=== PATIENT | male | born 1985 | race American Indian/Alaskan Native ===

== ENCOUNTER 2017-05-09 11:02 | Emergency (ER) | payer MEDICAID, OTHER ==
[2017-05-09 11:44] VITALS: BMI 21.7
[2017-05-09 11:45] VITALS: TEMP 98.5; O2SAT 98
--- NOTE | 2017-05-09 12:30 | C.PDOC ---
History Of Present Illness 32 y/o male presents to the ED with complaints of pain to left great toe x2 days. Pt states he stubbed the toe. He missed work today and needs a work note. Denies weakness, numbness or any other complaints. Time Seen by Provider: 05/09/17 12:08 Chief Complaint (Nursing): Lower Extremity Problem/Injury History Per: Patient History/Exam Limitations: no limitations Onset/Duration Of Symptoms: Days Current Symptoms Are (Timing): Still Present Severity: Mild Recent travel outside of the [place]: No Past Medical History Reviewed: Historical Data, Nursing Documentation, Vital Signs Vital Signs: Last Vital Signs Temp 98.5 F 05/09/17 11:44 Pulse 85 05/09/17 12:38 Resp 18 05/09/17 12:38 BP 119/68 05/09/17 12:38 Pulse Ox 98 05/09/17 12:38 - Medical History PMH: Anxiety, Post Traumatic Stress Disorder - [facility] Procedures INDIVID PSYCHOTHERAP NEC (02/02/15) OTHER GROUP THERAPY (02/02/15) Family History: States: Unknown Family Hx - Social History Hx Tobacco Use: Yes Hx Alcohol Use: No Hx Substance Use: No - Immunization History Hx Tetanus Toxoid Vaccination: No Hx Influenza Vaccination: No Hx Pneumococcal Vaccination: No Review Of Systems Musculoskeletal: Positive for: Other (left great toe pain) Neurological: Negative for: Weakness, Numbness Physical Exam - Physical Exam Appears: Non-toxic, No Acute Distress Skin: Warm, Dry, No Rash Head: Atraumatic, Normacephalic Extremity: Normal ROM, Capillary Refill (<2 seconds), No Deformity, No Swelling , Other (Left toes normal) Extremity: Bilateral: Atraumatic Neurological/Psych: Oriented x3, Normal Speech, Normal Motor, Normal Sensation ED Course And Treatment O2 Sat by Pulse Oximetry: 98 (room air) Pulse Ox Interpretation: Normal - Other Rad L great toe X-Ray: Interpreted by Me (neg) Progress Note: Plan: motrin, XR left great toe Medical Decision Making Medical Decision Making: stubbed his toe 2 days ago normal exam normal x-ray needed a note for work. Disposition Doctor Will See Patient In The: Office Counseled Patient/Family Regarding: Studies Performed, Diagnosis - Disposition Referrals: [facility] [Outside] [facility] [Outside] Disposition: HOME/ ROUTINE Disposition Time: 12:30 Condition: GOOD Additional Instructions: continue ice packs and motrin as needed follow-up in our Clinic as needed Instructions: Contusion in Adults (ED) Forms: Work Excuse - Clinical Impression Clinical Impression: Toe sprain - Scribe Statement The provider has reviewed the documentation as recorded by the Rickey Erickson Provider Attestation: All medical record entries made by the Rickey were at my direction and personally dictated by me. I have reviewed the chart and agree that the record accurately reflects my personal performance of the history, physical exam, medical decision making, and the department course for this patient. I have also personally directed, reviewed, and agree with the discharge instructions and disposition.
--- NOTE | 2017-05-09 12:31 | RAD ---
PROCEDURE: Radiographs of the left great toe. TECHNIQUE:: AP radiograph of the left foot, with oblique and lateral view of the left great toe. COMPARISON: None. FINDINGS: BONES: Current study reveals no definitive radiographic evidence of acute displaced fracture nor dislocation. The osseous structures intact of. JOINTS: Minimal hallux valgus deformity. Joint spaces are preserved without significant osteoarthritis. SOFT TISSUES: Questionable mild soft tissue swelling left great toe No radiopaque foreign bodies. OTHER FINDINGS: None. IMPRESSION: No acute fracture seen.
[2017-05-09 12:39] VITALS: BP 119/68; PULSE 85; RESP 18
== END 2017-05-09 12:39 | disposition home or self-care (01) ==
LOC: C.ER 11:02
DX: S93.502A Unspecified sprain of left great toe, initial encounter (principal); X58.XXXA Exposure to other specified factors, initial encounter

== ENCOUNTER 2017-05-31 12:35 | Emergency (ER) | payer MEDICAID, OTHER ==
[2017-05-31 12:35] VITALS: BMI 21.7
--- NOTE | 2017-05-31 13:53 | C.PDOC ---
History Of Present Illness 32 year old male presents to ED after a bystander witnessed him faint while walking to work just prior to arrival. 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 He has a history of anxiety. He also notes left foot pain from an injury approximately two weeks ago. Patient was seen at [facility] ED for his left foot injury and had an X-Ray performed that was negative. He continues to have pain. He denies any injury, nausea, vomiting, dizziness or headache. Time Seen by Provider: 05/31/17 13:15 Chief Complaint (Nursing): Syncope History Per: Patient History/Exam Limitations: no limitations Onset/Duration Of Symptoms: Sudden Onset Current Symptoms Are (Timing): Better Number Of Syncopal Episodes: 1 Activity At Onset Of Symptoms: Walking Associated Symptoms Preceding Syncopal Episode: No Predromal Symptoms (Sudden Onset) Seizure Or Post-ictal Symptoms: None Recent travel outside of the [place]: No Past Medical History Reviewed: Historical Data, Nursing Documentation, Vital Signs Vital Signs: Last Vital Signs Temp 97.8 F 05/31/17 14:39 Pulse 76 05/31/17 14:39 Resp 20 05/31/17 14:39 BP 99/63 L 05/31/17 14:39 Pulse Ox 96 05/31/17 15:21 - Medical History PMH: Anxiety, Post Traumatic Stress Disorder - [facility] Procedures INDIVID PSYCHOTHERAP NEC (02/02/15) OTHER GROUP THERAPY (02/02/15) Family History: States: Unknown Family Hx - Social History Hx Tobacco Use: Yes Hx Alcohol Use: No Hx Substance Use: No - Immunization History Hx Tetanus Toxoid Vaccination: No Hx Influenza Vaccination: No Hx Pneumococcal Vaccination: No Review Of Systems Constitutional: Negative for: Fever, Chills Cardiovascular: Negative for: Chest Pain, Palpitations Respiratory: Negative for: Shortness of Breath Gastrointestinal: Negative for: Nausea, Vomiting, Abdominal Pain, Diarrhea Musculoskeletal: Positive for: Foot Pain (left foot pain from previous injury ) Physical Exam - Physical Exam Appears: Non-toxic, No Acute Distress, Other (Patient appears anxious on exam ) Skin: Warm, Dry Head: Atraumatic, Normacephalic Eye(s): bilateral: Normal Inspection, PERRL, EOMI Nose: Normal Oral Mucosa: Moist Neck: Normal ROM, Supple Chest: Symmetrical, No Deformity Cardiovascular: Rhythm Regular Respiratory: Normal Breath Sounds, No Rhonchi, No Wheezing Gastrointestinal/Abdominal: Soft, No Tenderness, No Distention, No Guarding, No Rebound Back: Normal Inspection, No Vertebral Tenderness, No Paraspinal Tenderness Extremity: Normal ROM, Tenderness (left foot dorsal aspect of 2nd and 3rd metatarsels tender to palpation), No Swelling Neurological/Psych: Oriented x3, Normal Speech, Normal Cranial Nerves, No Cerebellar Signs, Normal Motor, Normal Sensation Gait: Steady ED Course And Treatment ECG: Interpreted By Me, Viewed By Me ECG Rhythm: Sinus Rhythm (with sinus arrhythmia) ECG Interpretation: No Acute Changes Rate From EC O2 Sat by Pulse Oximetry: 96 (room air ) Pulse Ox Interpretation: Normal - Other Rad Left Foot X-Ray X-Ray: Interpreted by Me, Viewed By Me Interpretation: No fractures or dislocations. Progress Note: EKG and X-Ray of left foot were performed. Medical Decision Making Medical Decision Makin32 year old male with episode of syncope. Upon arrival to ED patient has no symptoms is alert and oriented in no distress. EKG, accucheck ordered. Xray of foot ordered because of patient complaint of prior injury. Patient observed in ED without any arrhytmia on monitor or any complaints. Patient is stressed out from work and is anxious to get back. Patient discharged Disposition Counseled Patient/Family Regarding: Studies Performed, Diagnosis, Need For Followup - Disposition Referrals: Abran Mcpherson MD [Staff Provider] - Disposition: HOME/ ROUTINE Disposition Time: 14:36 Condition: STABLE Additional Instructions: Follow up with your primary medical doctor or clinic in 2-5 days for further evaluation. Xray was normal. Return to the emergency department at any time if symptoms persist or worsen. Instructions: Syncope (DC) Forms: [facility] (Danish), Work Excuse - POA Present On Arrival: None - Clinical Impression Clinical Impression: Foot pain, left, Syncope - Scribe Statement The provider has reviewed the documentation as recorded by the Scribe Tatyana Mei All medical record entries made by the Scribe were at my direction and personally dictated by me. I have reviewed the chart and agree that the record accurately reflects my personal performance of the history, physical exam, medical decision making, and the department course for this patient. I have also personally directed, reviewed, and agree with the discharge instructions and disposition.
--- NOTE | 2017-05-31 14:07 | RAD ---
PROCEDURE: Left Foot Radiographs. HISTORY: Pain COMPARISON: None. FINDINGS: BONES: Bone alignment and mineralization are normal. No fracture. JOINTS: Normal. SOFT TISSUES: Normal. OTHER FINDINGS: None. IMPRESSION: Normal examination.
[2017-05-31 14:40] VITALS: BP 99/63; PULSE 76; RESP 20; TEMP 97.8
[2017-05-31 15:16] VITALS: O2SAT 96
--- NOTE | 2017-05-31 20:22 | CARD ---
APPROVED REPORT EKG Measurement Heart [id number] <Conclusion> Normal sinus rhythm with sinus arrhythmia Normal ECG
== END 2017-05-31 14:48 | disposition home or self-care (01) ==
LOC: C.ER 12:35
DX: R55 Syncope and collapse (principal); M79.672 Pain in left foot; F41.9 Anxiety disorder, unspecified

== ENCOUNTER 2017-06-06 00:14 | Emergency (ER) | payer MEDICAID ==
[2017-06-06 00:14] VITALS: BMI 21.7
[2017-06-06 00:28] VITALS: PULSE 96; RESP 20; TEMP 98.3; O2SAT 97
--- NOTE | 2017-06-06 00:57 | C.PDOC ---
History Of Present Illness BIBA for sore throat, pt was worried his airway was compromised many prior evals for various pains with neg w/u h/o anxiety Time Seen by Provider: 06/06/17 00:52 Chief Complaint (Nursing): ENT Problem History Per: Patient, EMS History/Exam Limitations: no limitations Onset/Duration Of Symptoms: Hrs Current Symptoms Are (Timing): Better Location Of Pain: Throat Sick Contacts (Context): None Severity: Mild Pain Scale Rating Of: 2 Additional History Per: Patient Past Medical History Reviewed: Historical Data, Nursing Documentation, Vital Signs Vital Signs: Last Vital Signs Temp 98.3 F 06/06/17 00:21 Pulse 96 H 06/06/17 00:21 Resp 20 06/06/17 00:21 BP Pulse Ox 97 06/06/17 00:57 - Medical History PMH: Anxiety, Post Traumatic Stress Disorder Denies: Diabetes, Hepatitis, HIV, HTN, Chronic Kidney Disease, Seizures, Sexually Transmitted Disease - [facility] Procedures INDIVID PSYCHOTHERAP NEC (02/02/15) OTHER GROUP THERAPY (02/02/15) Family History: States: Unknown Family Hx - Social History Hx Tobacco Use: Yes Hx Alcohol Use: No Hx Substance Use: No - Immunization History Hx Tetanus Toxoid Vaccination: No Hx Influenza Vaccination: No Hx Pneumococcal Vaccination: No Review Of Systems Except As Marked, All Systems Reviewed And Found Negative. Psych: Positive for: Anxiety Physical Exam - Physical Exam Appears: Well Skin: Normal Color Head: Atraumatic Eye(s): bilateral: Normal Inspection Throat: Erythema (mild, widely patent OP, no exudate) Respiratory: Normal Breath Sounds ED Course And Treatment O2 Sat by Pulse Oximetry: 97 Progress Note: motrin PO Medical Decision Making Medical Decision Making: mild sore throat, widely patent OP, no osb, no infection, normal voice/phonation ? underlying anxiety reassured, NSAIDS educated Disposition Doctor Will See Patient In The: Office Counseled Patient/Family Regarding: Studies Performed, Diagnosis - Disposition Referrals: Abran Mcpherson MD [Staff Provider] - Disposition: HOME/ ROUTINE Disposition Time: 00:57 Condition: GOOD Additional Instructions: take motrin 400-600 mg every 6 hours as needed for your mild sore throat pain Follow-up with Dr Mcpherson as needed Instructions: Pharyngitis (ED) Forms: Pins (Stateless) - Clinical Impression Clinical Impression: Sore throat
== END 2017-06-06 01:12 | disposition home or self-care (01) ==
LOC: C.ER 00:14
DX: J02.9 Acute pharyngitis, unspecified (principal); F17.210 Nicotine dependence, cigarettes, uncomplicated

== ENCOUNTER 2017-07-10 04:57 | Emergency (ER) | payer MEDICAID ==
[2017-07-10 04:58] VITALS: BMI 21.7
[2017-07-10 05:12] VITALS: BP 110/71; PULSE 72; RESP 20; TEMP 99.9; O2SAT 98
--- NOTE | 2017-07-10 05:22 | C.PDOC ---
History Of Present Illness 32 year old male who presents to the ER with a complaint of facial pain, described as pressure, frontal headache, and nasal congestion for the past 3 days. Denies toothache, fever, or injury. Time Seen by Provider: 07/10/17 05:13 Chief Complaint (Nursing): Cough, Cold, Congestion History Per: Patient History/Exam Limitations: no limitations Onset/Duration Of Symptoms: Hrs Current Symptoms Are (Timing): Still Present Location Of Pain: Headache Sick Contacts (Context): None Associated Symptoms: Nasal Congestion. denies: Fever Ear Symptoms: Bilateral: None Recent travel outside of the [place]: No Past Medical History Reviewed: Historical Data, Nursing Documentation, Vital Signs Vital Signs: Last Vital Signs Temp 99.9 F H 07/10/17 05:05 Pulse 72 07/10/17 05:05 Resp 20 07/10/17 05:05 BP 110/71 07/10/17 05:05 Pulse Ox 98 07/10/17 05:31 - Medical History PMH: Anxiety, Post Traumatic Stress Disorder Surgical History: No Surg Hx - [facility] Procedures INDIVID PSYCHOTHERAP NEC (02/02/15) OTHER GROUP THERAPY (02/02/15) Family History: States: Unknown Family Hx - Social History Hx Tobacco Use: Yes Hx Alcohol Use: Yes Hx Substance Use: Yes - Immunization History Hx Tetanus Toxoid Vaccination: No Hx Influenza Vaccination: No Hx Pneumococcal Vaccination: No Review Of Systems Constitutional: Negative for: Fever, Chills, Malaise ENT: Negative for: Ear Pain, Mouth Pain, Throat Pain Cardiovascular: Negative for: Chest Pain, Palpitations Respiratory: Negative for: Cough, Shortness of Breath Gastrointestinal: Negative for: Nausea, Vomiting, Abdominal Pain Skin: Negative for: Rash Neurological: Positive for: Headache. Negative for: Weakness, Numbness, Dizziness Physical Exam - Physical Exam Appears: Non-toxic Skin: Normal Color, Warm, Dry Head: Atraumatic, Normacephalic, Tenderness (Left maxillary sinus), No Swelling Eye(s): bilateral: Normal Inspection, EOMI Ear(s): Bilateral: Normal Nose: Normal, No Discharge Oral Mucosa: Moist Teeth: Normal Dentition Throat: Normal, No Erythema, No Exudate Neck: Normal, Supple Chest: Symmetrical, No Tenderness Cardiovascular: Rhythm Regular, No Murmur Respiratory: Normal Breath Sounds, No Rales, No Rhonchi, No Wheezing Extremity: Bilateral: Atraumatic, Normal Color And Temperature, Normal ROM Neurological/Psych: Oriented x3, Normal Speech Gait: Steady ED Course And Treatment O2 Sat by Pulse Oximetry: 98 (Room air) Pulse Ox Interpretation: Normal Medical Decision Making Medical Decision Making: Impression: 32 year old male with sinus pressure. Plan: * Sudafed Disposition Counseled Patient/Family Regarding: Diagnosis, Need For Followup, Rx Given - Disposition Referrals: [facility] [Outside] [facility] [Outside] Disposition: HOME/ ROUTINE Disposition Time: 05:30 Condition: STABLE Additional Instructions: Take Tylenol or Motrin alternating every 4-6 hours for Fever 100.4F or higher. Rest and drink plenty of fluids. May use cool mist humidifier or vaporizer in room. Try taking over the counter antihistamine (Claritin, Gabriela, Zyrtec), Decongestant or Cough medicine (Mucinex) as needed every 6-8 hours. Follow up with your primary medical doctor or clinic in 1 week for further evaluation. Prescriptions: Fluticasone Propionate [Flonase] 1 actuation NS DAILY #1 bottle Loratadine [Claritin] 10 mg PO DAILY #30 tab Pseudoephedrine HCl [Sudafed] 30 mg PO Q8 #24 tablet Instructions: Sinusitis (ED) Forms: Work Excuse - POA Present On Arrival: None - Clinical Impression Clinical Impression: Sinusitis - Scribe Statement The provider has reviewed the documentation as recorded by the Scribjosephine Farley All medical record entries made by the Scribe were at my direction and personally dictated by me. I have reviewed the chart and agree that the record accurately reflects my personal performance of the history, physical exam, medical decision making, and the department course for this patient. I have also personally directed, reviewed, and agree with the discharge instructions and disposition.
== END 2017-07-10 05:45 | disposition home or self-care (01) ==
LOC: C.ER 04:57
DX: J32.9 Chronic sinusitis, unspecified (principal)

== ENCOUNTER 2017-07-13 00:55 | Emergency (ER) | payer MEDICAID ==
[2017-07-13 00:55] VITALS: BMI 21.7
[2017-07-13 01:15] VITALS: RESP 18; O2SAT 99
--- NOTE | 2017-07-13 01:19 | C.PDOC ---
History Of Present Illness 32 y/o male presents to the ED for evaluation of diffuse abdominal pain which began while he was drinking alcohol earlier this evening. Patient admits to drinking around 1 pint of alcohol and beer daily. Patient notes he experiences a similar type of pain when straining to have a bowel movement. Patient also requests to be tested for HIV. Upon further questioning, it became clearer that this may have been patient's main reason for ED visit. Patient states he engaged in unprotected sexual intercourse with a female around 2 months ago. The female's HIV status is unknown, but patient is concerned and wishes to get tested. He denies fever, vomiting, and diarrhea. Time Seen by Provider: 07/13/17 01:03 Chief Complaint (Nursing): Abdominal Pain History Per: Patient History/Exam Limitations: no limitations Onset/Duration Of Symptoms: Hrs Current Symptoms Are (Timing): Still Present Location Of Pain/Discomfort: Diffuse Radiation Of Pain To:: None Quality Of Discomfort: "Pain" Associated Symptoms: denies: Fever, Chills, Nausea, Vomiting Additional History Per: Patient Past Medical History Reviewed: Historical Data, Nursing Documentation, Vital Signs Vital Signs: Last Vital Signs Temp 98.6 F 07/13/17 02:52 Pulse 70 07/13/17 02:52 Resp 18 07/13/17 02:52 BP 132/80 07/13/17 02:52 Pulse Ox 99 07/13/17 02:52 - Medical History PMH: Anxiety, Post Traumatic Stress Disorder Surgical History: No Surg Hx - [facility] Procedures INDIVID PSYCHOTHERAP NEC (02/02/15) OTHER GROUP THERAPY (02/02/15) Family History: States: Unknown Family Hx - Social History Hx Tobacco Use: Yes Hx Alcohol Use: Yes Hx Substance Use: Yes - Immunization History Hx Tetanus Toxoid Vaccination: No Hx Influenza Vaccination: No Hx Pneumococcal Vaccination: No Review Of Systems Constitutional: Negative for: Fever, Chills Cardiovascular: Negative for: Chest Pain, Palpitations Respiratory: Negative for: Cough, Shortness of Breath Gastrointestinal: Positive for: Abdominal Pain. Negative for: Nausea, Vomiting , Diarrhea Neurological: Negative for: Weakness, Numbness Physical Exam - Physical Exam Appears: Non-toxic, No Acute Distress Skin: Normal Color, Warm, Dry Head: Atraumatic, Normacephalic Eye(s): bilateral: Normal Inspection Oral Mucosa: Moist Neck: Supple Chest: Symmetrical, No Deformity, No Tenderness Cardiovascular: Rhythm Regular, No Murmur Respiratory: Normal Breath Sounds, No Rales, No Rhonchi, No Wheezing Gastrointestinal/Abdominal: Tenderness (diffuse), No Guarding, No Rebound Extremity: Normal ROM, Capillary Refill (less than 2 seconds ) Neurological/Psych: Oriented x3, Normal Speech, Normal Cognition Gait: Steady ED Course And Treatment - Laboratory Results Result Diagrams: 07/13/17 01:44 07/13/17 01:44 O2 Sat by Pulse Oximetry: 99 (on RA) Pulse Ox Interpretation: Normal Progress Note: labs ordered and reviewed. Chlamydia/GC culture obtained and sent to lab for evaluation. Medical Decision Making Medical Decision Making: Progress: Patient is advised that this ED does not offer routine HIV testing. Patient is advised to follow up with his PMD and/or Health Department for further evaluation. Disposition - Disposition Referrals: [facility] [Outside] Disposition: HOME/ ROUTINE Disposition Time: 03:20 Condition: GOOD Additional Instructions: Please follow up in the clinic here or in the health department for HIV testing. Return to the ER for any worsening symptoms or for any other concerns. Prescriptions: Famotidine [Pepcid] 20 mg PO DAILY #14 tab Instructions: Abuse of Alcohol (ED) Forms: General Discharge Instructions, [facility] (Slovak) - Clinical Impression Clinical Impression: Abdominal pain, Alcohol abuse - Scribe Statement The provider has reviewed the documentation as recorded by the Scribe (Anjali Lynne) Provider Attestation: All medical record entries made by the Scribe were at my direction and personally dictated by me. I have reviewed the chart and agree that the record accurately reflects my personal performance of the history, physical exam, medical decision making, and the department course for this patient. I have also personally directed, reviewed, and agree with the discharge instructions and disposition.
[2017-07-13 01:49] LABS: BASO # 0.1 K/uL (0.0-0.2); BASO % 0.6 % (0.0-2.0); EOS # 0.2 K/uL (0.0-0.7); EOS % 2.4 % (0.0-4.0); HEMATOCRIT 42.7 % (35.0-51.0); LYMPH # 2.6 K/uL (1.0-4.3); LYMPH % 29.8 % (20.0-40.0); MEAN CELL VOLUME 93.2 fL (80.0-94.0); MEAN CORPUSCULAR HGB CONC 34.3 g/dL (33.0-37.0); MEAN PLATELET VOLUME 8.4 fL (7.2-11.7); MONO # 0.8 K/uL (0.0-0.8); MONO % 9.8 % (0.0-10.0); NRBC % 0.1 % (0.0-2.0); RED CELL DISTRIBUTION WIDTH 13.6 % (11.5-14.5); WHITE BLOOD COUNT 8.6 K/uL (4.8-10.8)
[2017-07-13 01:50] LABS: URINE BILIRUBIN NEGATIVE (NEGATIVE); URINE BLOOD NEGATIVE (NEGATIVE); URINE COLOR Colorless (YELLOW); URINE GLUCOSE (UA) NORMAL (Normal); URINE KETONE NEGATIVE (NEGATIVE); URINE LEUKOCYTE ESTERASE NEG Leu/uL (Negative); URINE PROTEIN NEGATIVE (NEGATIVE); URINE UROBILINOGEN NORMAL mg/dL (0.2-1.0); WBC URINE < 1 /hpf (0-5)
[2017-07-13 02:06] LABS: ALB/GLOB RATIO 1.2 (1.0-2.1); ALKALINE PHOSPHATASE 89 U/L (38-126); ALT/SGPT 31 U/L (21-72); AST/SGOT 24 U/L (17-59); BILIRUBIN,TOTAL 0.5 mg/dL (0.2-1.3); BLOOD UREA NITROGEN 11 mg/dL (9-20); CALCIUM 9.4 mg/dl (8.6-10.4); CARBON DIOXIDE 24 mmol/L (22-30); CHLORIDE 103 mmol/L (98-107); GFR AFRICAN-AMERICAN > 60; GLUCOSE,RANDOM 79 mg/dL (75-110); POTASSIUM 3.6 mmol/L (3.6-5.2); SODIUM 140 mmol/L (132-148); TOTAL PROTEIN 7.6 g/dL (6.3-8.3)
[2017-07-13 02:52] VITALS: BP 132/80; PULSE 70; TEMP 98.6
== END 2017-07-13 03:20 | disposition home or self-care (01) ==
LOC: C.ER 00:55
DX: R10.9 Unspecified abdominal pain (principal); F10.10 Alcohol abuse, uncomplicated; Y90.9 Presence of alcohol in blood, level not specified

== ENCOUNTER 2018-02-22 21:04 | Emergency (ER) | payer MEDICAID, OTHER ==
[2018-02-22 21:04] VITALS: BMI 21.7
[2018-02-22] MEDS ORDERED: Sodium Chloride 0.9% 1,000 ML IV ONE (22:04)
--- NOTE | 2018-02-22 22:05 | C.PDOC ---
History Of Present Illness 32 year old male presents to the ER with a complaint of epigastric pain and 2 episodes of watery stools after eating pork 2 days ago. Patient states he usually does not eat pork because he feel it does not agree with him. He also reports he developed nausea and vomiting today and continues to not feel well. Denies fever or chills.He denies any recent travel, antibiotic use or sick contacts. Time Seen by Provider: 02/22/18 21:44 Chief Complaint (Nursing): GI Problem History Per: Patient History/Exam Limitations: no limitations Onset/Duration Of Symptoms: Days Current Symptoms Are (Timing): Still Present Location Of Pain/Discomfort: Epigastric Radiation Of Pain To:: None Quality Of Discomfort: Unable To Describe Associated Symptoms: Nausea, Vomiting, Other (Watery stools). denies: Fever, Chills Exacerbating Factors: None Alleviating Factors: None Recent travel outside of the [place]: No Past Medical History Reviewed: Historical Data, Nursing Documentation, Vital Signs Vital Signs: Last Vital Signs Temp 99 F 02/22/18 22:55 Pulse 73 02/22/18 22:55 Resp 16 02/22/18 22:55 BP 150/110 H 02/22/18 22:55 Pulse Ox 98 02/22/18 23:15 - Medical History PMH: Anxiety, Post Traumatic Stress Disorder - [facility] Procedures INDIVID PSYCHOTHERAP NEC (02/02/15) OTHER GROUP THERAPY (02/02/15) Family History: States: Unknown Family Hx - Social History Hx Tobacco Use: Yes Hx Alcohol Use: Yes Hx Substance Use: Yes (PCP) - Immunization History Hx Tetanus Toxoid Vaccination: No Hx Influenza Vaccination: No Hx Pneumococcal Vaccination: No Review Of Systems Constitutional: Negative for: Fever, Chills Cardiovascular: Negative for: Chest Pain, Palpitations Respiratory: Negative for: Shortness of Breath Gastrointestinal: Positive for: Nausea, Vomiting, Abdominal Pain, Other (Watery stools) Physical Exam - Physical Exam Appears: Non-toxic Skin: Normal Color, Warm, Dry Head: Atraumatic, Normacephalic Eye(s): bilateral: Normal Inspection Oral Mucosa: Moist Chest: Symmetrical, No Tenderness Cardiovascular: Rhythm Regular Respiratory: Normal Breath Sounds, No Rales, No Rhonchi, No Wheezing Gastrointestinal/Abdominal: Soft, No Tenderness Neurological/Psych: Oriented x3, Normal Speech ED Course And Treatment - Laboratory Results Result Diagrams: 02/22/18 22:45 02/22/18 22:45 Lab Interpretation: No Acute Changes O2 Sat by Pulse Oximetry: 98 (Room air) Pulse Ox Interpretation: Normal Progress Note: Blood work ordered. IV fluids and zofran administered. Reevaluation Time: 23:12 Reassessment Condition: Improved Disposition Counseled Patient/Family Regarding: Studies Performed, Diagnosis, Need For Followup, Rx Given - Disposition Referrals: [facility] [Outside] Disposition: HOME/ ROUTINE Disposition Time: 23:12 Condition: IMPROVED Prescriptions: Ondansetron ODT [Zofran ODT] 1 odt PO QID PRN #10 odt PRN Reason: Nausea/Vomiting Instructions: Diarrhea in Adolescents and Adults, [place] Diet, Nausea and Vomiting, Adult (DC) Forms: [facility] (Vietnamese), Work Excuse - Clinical Impression Clinical Impression: Vomiting, Nausea, Abdominal pain, Diarrhea - Scribe Statement The provider has reviewed the documentation as recorded by the Scribjosephine Farley All medical record entries made by the Jeffreyibjosephine were at my direction and personally dictated by me. I have reviewed the chart and agree that the record accurately reflects my personal performance of the history, physical exam, medical decision making, and the department course for this patient. I have also personally directed, reviewed, and agree with the discharge instructions and disposition.
[2018-02-22 22:48] LABS: BASO % 0.5 % (0.0-2.0); EOS # 0.2 K/uL (0.0-0.7); EOS % 3.6 % (0.0-4.0); HEMOGLOBIN 13.4 g/dL (12.0-18.0); LYMPH # 2.1 K/uL (1.0-4.3); LYMPH % 31.4 % (20.0-40.0); MEAN CELL VOLUME 94.3 fL (80.0-94.0); MEAN CORPUSCULAR HEMOGLOBIN 32.5 pg (27.0-31.0); MEAN CORPUSCULAR HGB CONC 34.5 g/dL (33.0-37.0); MEAN PLATELET VOLUME 8.5 fL (7.2-11.7); MONO # 0.8 K/uL (0.0-0.8); MONO % 12.2 % (0.0-10.0); NEUT # 3.5 K/uL (1.8-7.0); NEUT % 52.3 % (50.0-75.0); NRBC % 0.1 % (0.0-2.0); RBC 4.1 Mil/uL (4.40-5.90); RED CELL DISTRIBUTION WIDTH 13.4 % (11.5-14.5); WHITE BLOOD COUNT 6.7 K/uL (4.8-10.8)
[2018-02-22 22:59] VITALS: O2SAT 98
[2018-02-22 23:00] LABS: ALB/GLOB RATIO 1.3 (1.0-2.1); ALT/SGPT 33 U/L (21-72); AST/SGOT 25 U/L (17-59); BLOOD UREA NITROGEN 15 mg/dL (9-20); CALCIUM 8.6 mg/dl (8.6-10.4); GFR AFRICAN-AMERICAN > 60; GFR NON-AFRICAN AMERICAN > 60; LIPASE 46 U/L (23-300)
[2018-02-22 23:24] VITALS: BP 138/70; PULSE 89; RESP 20; TEMP 98.8
== END 2018-02-22 23:24 | disposition home or self-care (01) ==
LOC: C.ER 21:04
DX: R11.2 Nausea with vomiting, unspecified (principal); R10.13 Epigastric pain; R19.7 Diarrhea, unspecified
CPT/HCPCS: 80053; 83690; 85025; 96361; 96374; 99285; J2405; J7040

== ENCOUNTER 2018-02-28 23:55 | Emergency (ER) | payer MEDICAID ==
[2018-02-28 23:55] VITALS: BMI 21.7
[2018-03-01 00:08] VITALS: BP 120/77; PULSE 87; RESP 20; TEMP 98.2; O2SAT 98
--- NOTE | 2018-03-01 01:19 | C.PDOC ---
History Of Present Illness 32 year old male presents to the ED c/o abdominal pain. Patient reports feeling worried due to some cramp like abdominal pain. Patient was recently seen and had blood work and exam done which both came back negative. Patient denies fever , chills, nausea, vomit, diarrhea, dysuria, hematuria. Time Seen by Provider: 03/01/18 01:19 Chief Complaint (Nursing): Abdominal Pain History Per: Patient History/Exam Limitations: no limitations Onset/Duration Of Symptoms: Days Current Symptoms Are (Timing): Still Present Location Of Pain/Discomfort: Diffuse Radiation Of Pain To:: None Quality Of Discomfort: Cramping Exacerbating Factors: None Alleviating Factors: None Recent travel outside of the [place]: No Additional History Per: Patient Past Medical History Reviewed: Historical Data, Nursing Documentation, Vital Signs Vital Signs: Last Vital Signs Temp 98.2 F 03/01/18 00:03 Pulse 87 03/01/18 00:03 Resp 20 03/01/18 00:03 BP 120/77 03/01/18 00:03 Pulse Ox 98 03/01/18 01:23 - Medical History PMH: Anxiety, Post Traumatic Stress Disorder Denies: Diabetes, Hepatitis, HIV, HTN, Chronic Kidney Disease, Seizures, Sexually Transmitted Disease Surgical History: No Surg Hx - [facility] Procedures INDIVID PSYCHOTHERAP NEC (02/02/15) OTHER GROUP THERAPY (02/02/15) Family History: States: Unknown Family Hx - Social History Hx Tobacco Use: Yes Hx Alcohol Use: Yes Hx Substance Use: Yes (PCP) - Immunization History Hx Tetanus Toxoid Vaccination: No Hx Influenza Vaccination: No Hx Pneumococcal Vaccination: No Review Of Systems Constitutional: Negative for: Fever, Chills Respiratory: Negative for: Shortness of Breath Gastrointestinal: Positive for: Abdominal Pain. Negative for: Nausea, Vomiting , Diarrhea Skin: Negative for: Rash Physical Exam - Physical Exam Appears: Non-toxic, No Acute Distress, Other (anxious) Skin: Warm, Dry Head: Normacephalic Eye(s): bilateral: Normal Inspection Nose: No Discharge Oral Mucosa: Moist Neck: Supple Chest: Symmetrical Cardiovascular: Rhythm Regular, No Murmur Respiratory: No Rales, No Rhonchi, No Wheezing Gastrointestinal/Abdominal: Soft, No Tenderness, No Guarding, No Rebound Extremity: Bilateral: Normal Color And Temperature, Normal ROM Neurological/Psych: Oriented x3 Gait: Steady ED Course And Treatment O2 Sat by Pulse Oximetry: 98 (ON RA) Pulse Ox Interpretation: Normal Disposition Counseled Patient/Family Regarding: Studies Performed, Diagnosis, Need For Followup - Disposition Referrals: [facility] at [facility] [Outside] Disposition: HOME/ ROUTINE Disposition Time: 01:19 Condition: FAIR Instructions: Anxiety, Adult (DC) Forms: [facility] [employer] (Emirati) - Clinical Impression Clinical Impression: Anxiety - Scribe Statement The provider has reviewed the documentation as recorded by the Scribe Asad Batista All medical record entries made by the Scribe were at my direction and personally dictated by me. I have reviewed the chart and agree that the record accurately reflects my personal performance of the history, physical exam, medical decision making, and the department course for this patient. I have also personally directed, reviewed, and agree with the discharge instructions and disposition.
== END 2018-03-01 01:19 | disposition home or self-care (01) ==
LOC: C.ER 23:55
DX: F41.9 Anxiety disorder, unspecified (principal)

== ENCOUNTER 2018-10-02 22:08 | Emergency (ER) | payer MEDICAID ==
[2018-10-02 22:08] VITALS: BMI 21.7
[2018-10-02] MEDS ORDERED: Alum-Mag Hydrox-Simethicone Susp (30 mL) PO STA (23:12)
--- NOTE | 2018-10-02 23:14 | C.PDOC ---
History Of Present Illness 33 year old male with PMHx of schizophrenia and alcohol abuse presents to the ED c/o mild abdominal discomfort when burping with an acidic taste in his mouth. Patient has not tried OTC acid relief medications. Patient also seeking alcohol detox. Patient denies SI/HI, hallucinations, CP, SOB, palpitations, weakness, numbness. Time Seen by Provider: 10/02/18 23:03 Chief Complaint (Nursing): Medical Clearance History Per: Patient History/Exam Limitations: no limitations Onset/Duration Of Symptoms: Days Current Symptoms Are (Timing): Still Present Recent travel outside of the [place]: No Additional History Per: Patient Past Medical History Reviewed: Historical Data, Nursing Documentation, Vital Signs - Medical History PMH: Anxiety, Fractures, Post Traumatic Stress Disorder Denies: Diabetes, Hepatitis, HIV, HTN, Chronic Kidney Disease, Seizures, Sexually Transmitted Disease Surgical History: No Surg Hx - [facility] Procedures INDIVID PSYCHOTHERAP NEC (02/02/15) OTHER GROUP THERAPY (02/02/15) Family History: States: Unknown Family Hx - Social History Hx Tobacco Use: Yes Hx Alcohol Use: Yes Hx Substance Use: Yes (PCP) - Immunization History Hx Tetanus Toxoid Vaccination: No Hx Influenza Vaccination: No Hx Pneumococcal Vaccination: No Review Of Systems Constitutional: Negative for: Fever, Chills Cardiovascular: Negative for: Chest Pain, Palpitations Respiratory: Negative for: Cough, Shortness of Breath Gastrointestinal: Positive for: Abdominal Pain. Negative for: Nausea, Vomiting, Diarrhea Skin: Negative for: Rash Neurological: Negative for: Weakness, Numbness Psych: Negative for: Depression, Suicidal ideation Physical Exam - Physical Exam Appears: Non-toxic, No Acute Distress, Other (AOB, bizarre affect) Skin: Normal Color, Warm, Dry Head: Atraumatic, Normacephalic Eye(s): bilateral: Normal Inspection Oral Mucosa: Moist Neck: Normal ROM, Supple Chest: Symmetrical Cardiovascular: Rhythm Regular Respiratory: Normal Breath Sounds, No Rales, No Rhonchi, No Wheezing Gastrointestinal/Abdominal: Soft, No Tenderness, No Guarding, No Rebound Extremity: Normal ROM, No Tenderness, No Swelling Neurological/Psych: Oriented x3, Normal Speech, Normal Cognition Gait: Steady ED Course And Treatment O2 Sat by Pulse Oximetry: 98 (ON RA) Pulse Ox Interpretation: Normal Medical Decision Making Medical Decision Making: prob alcoholic gastritis many prior evals anxiety Pepcid/maalox educated seeking detox- referred for pre-screening. no acute issues- february f/u w PMD- Dr. Mcpherson. Disposition Doctor Will See Patient In The: Office Counseled Patient/Family Regarding: Studies Performed, Diagnosis - Disposition Referrals: [facility] [Outside] [facility] [Outside] [facility] [Outside] [facility] [Outside] [facility] [Outside] Abran Mcpherson MD [Staff Provider] - Disposition: HOME/ ROUTINE Disposition Time: 23:13 Condition: GOOD Additional Instructions: GERD: probably related to alcohol use decrease alcohol intake as able pepcid 20 mg @ night Maalox 30 cc's 4-5x/day as needed for GERD symptoms Alcohol Abuse: Seek Pre-screening for inpatient alcohol detox Call [facility] in AM for further eval Instructions: Acid Reflux (Gastroesophageal Reflux Disease), Adult (DC), Anxiety, Adult (DC), Alcohol Abuse and Alcoholism (DC) Forms: [employer] (Omani) - Clinical Impression Clinical Impression: Anxiety, Alcohol abuse - Scribe Statement The provider has reviewed the documentation as recorded by the Scribe Asad Batista All medical record entries made by the Scribe were at my direction and personally dictated by me. I have reviewed the chart and agree that the record accurately reflects my personal performance of the history, physical exam, medical decision making, and the department course for this patient. I have also personally directed, reviewed, and agree with the discharge instructions and disposition.
[2018-10-02] MEDS ORDERED: Aluminum Hydroxide/Magnesium Hydroxide Susp (30 mL) ONE (23:29)
[2018-10-02 23:48] VITALS: BP 132/78; PULSE 89; RESP 20; TEMP 98; O2SAT 98
== END 2018-10-02 23:45 | disposition home or self-care (01) ==
LOC: C.ER 22:08
DX: F41.9 Anxiety disorder, unspecified (principal); F10.10 Alcohol abuse, uncomplicated; Y90.9 Presence of alcohol in blood, level not specified

== ENCOUNTER 2018-10-14 10:26 | Emergency (ER) | payer MEDICAID ==
[2018-10-14 10:29] VITALS: BMI 20.8
[2018-10-14 10:32] VITALS: RESP 18
[2018-10-14] MEDS ORDERED: Sodium Chloride 0.9% 1,000 ML IV STA (11:32)
[2018-10-14] MEDS ORDERED: cefTRIAXone (Rocephin) 250 mg Inj IM STA (11:38)
[2018-10-14] MEDS ORDERED: Sodium Chloride 0.9% 1,000 ML ONE (11:52)
[2018-10-14 12:21] LABS: BASO % 0.6 % (0.0-2.0); EOS # 0.3 K/uL (0.0-0.7); EOS % 5.1 % (0.0-4.0); HEMOGLOBIN 14.6 g/dL (12.0-18.0); LYMPH # 1.6 K/uL (1.0-4.3); LYMPH % 28.2 % (20.0-40.0); MEAN CELL VOLUME 96.5 fL (80.0-94.0); MEAN CORPUSCULAR HEMOGLOBIN 33.3 pg (27.0-31.0); MEAN CORPUSCULAR HGB CONC 34.5 g/dL (33.0-37.0); MEAN PLATELET VOLUME 8.8 fL (7.2-11.7); MONO # 0.6 K/uL (0.0-0.8); MONO % 10.2 % (0.0-10.0); NEUT # 3.2 K/uL (1.8-7.0); NEUT % 55.9 % (50.0-75.0); RBC 4.39 Mil/uL (4.40-5.90); RED CELL DISTRIBUTION WIDTH 13.7 % (11.5-14.5); WHITE BLOOD COUNT 5.8 K/uL (4.8-10.8)
[2018-10-14 12:30] LABS: ALB/GLOB RATIO 1.3 (1.0-2.1); ALBUMIN 4.2 g/dL (3.5-5.0); ALT/SGPT 48 U/L (21-72); AMYLASE 93 U/L (30-110); AST/SGOT 54 U/L (17-59); BLOOD UREA NITROGEN 22 mg/dL (9-20); CALCIUM 9.3 mg/dl (8.6-10.4); GFR NON-AFRICAN AMERICAN > 60; LIPASE 53 U/L (23-300); SQUAMOUS EPITHIAL 2 /hpf (0-5); URINE BILIRUBIN NEGATIVE (NEGATIVE); URINE BLOOD NEGATIVE (NEGATIVE); URINE CLARITY Hazy (Clear); URINE COLOR Yellow (YELLOW); URINE GLUCOSE (UA) NORMAL (Normal); URINE LEUKOCYTE ESTERASE TRACE Leu/uL (Negative); URINE PROTEIN NEGATIVE (NEGATIVE); URINE UROBILINOGEN NORMAL mg/dL (0.2-1.0)
[2018-10-14 12:35] LABS: BARBITURATES, UR NEGATIVE (NEGATIVE); BENZODIAZEPINES, UR NEGATIVE (NEGATIVE); OPIATES, UR NEGATIVE (NEGATIVE)
[2018-10-14 12:38] LABS: PHENCYCLIDINE, UR POSITIVE (NEGATIVE)
[2018-10-14 13:14] VITALS: BP 130/66; PULSE 70; TEMP 98.5; O2SAT 98
--- NOTE | 2018-10-14 14:02 | C.PDOC ---
History Of Present Illness 33 year old male presents to the ED for an evaluation of intermittent diarrhea for one week. Reports he was seen recently in the ED and was diagnosed with viral illness. Notes he recovered but feels sick again. Patient is concerned b ecause he cut left thumb 1.5 weeks ago and believes symptoms might be a cause of a finger infection. Also requesting STD/HIV testing because he had unprotected sex and has some discomfort on urination. Time Seen by Provider: 10/14/18 10:55 Chief Complaint (Nursing): Fever History Per: Patient History/Exam Limitations: no limitations Onset/Duration Of Symptoms: Days Current Symptoms Are (Timing): Still Present Reports Recently: Seen In ED Past Medical History Reviewed: Historical Data, Nursing Documentation, Vital Signs Vital Signs: Last Vital Signs Temp 98.5 F 10/14/18 13:05 Pulse 70 10/14/18 13:05 Resp 18 10/14/18 13:05 BP 130/66 10/14/18 13:05 Pulse Ox 98 10/14/18 13:05 - Medical History PMH: Anxiety, Fractures, Post Traumatic Stress Disorder Denies: Diabetes, Hepatitis, HIV, HTN, Chronic Kidney Disease, Seizures, Sexually Transmitted Disease Surgical History: No Surg Hx - [facility] Procedures INDIVID PSYCHOTHERAP NEC (02/02/15) OTHER GROUP THERAPY (02/02/15) Family History: States: No Known Family Hx - Social History Hx Tobacco Use: Yes Hx Alcohol Use: Yes Hx Substance Use: Yes (PCP) - Immunization History Hx Tetanus Toxoid Vaccination: No Hx Influenza Vaccination: No Hx Pneumococcal Vaccination: No Review Of Systems Except As Marked, All Systems Reviewed And Found Negative. Constitutional: Negative for: Fever, Chills Gastrointestinal: Positive for: Diarrhea. Negative for: Nausea, Vomiting, Abdominal Pain Genitourinary: Positive for: Dysuria. Negative for: Hematuria Physical Exam - Physical Exam Appears: Non-toxic, No Acute Distress Skin: Warm, Dry, No Rash Head: Normacephalic Eye(s): bilateral: Normal Inspection Nose: Normal Oral Mucosa: Moist Neck: Supple Chest: Symmetrical Cardiovascular: Rhythm Regular Respiratory: No Rales, No Rhonchi, No Wheezing Gastrointestinal/Abdominal: Soft, No Tenderness, No Guarding, No Rebound Extremity: Normal ROM, No Tenderness, No Deformity, No Swelling, Other (healed laceration with no erythema or drainage noted to the palmar surface of left thumb ) Neurological/Psych: Oriented x3, Normal Speech Gait: Steady ED Course And Treatment - Laboratory Results Result Diagrams: 10/14/18 12:14 10/14/18 12:14 O2 Sat by Pulse Oximetry: 98 (RA) Pulse Ox Interpretation: Normal Progress Note: Urine cultures collected. Chlamydia/GC tests ordered. Patient treated with Protonix, Rocephin, Zithromax, Zofran, and IV fluids. Patient given follow up instructions. Instructed to return to ER if symptoms worsen or new symptoms arise. Disposition - Disposition Disposition: HOME/ ROUTINE Disposition Time: 14:00 Condition: STABLE Additional Instructions: Follow up with PMD within 1-2 days. Return to ED if feel worse. Instructions: Diarrhea and Traveler's Diarrhea, Adult (DC), STD Prevention Forms: [facility] (Guamanian), Work Excuse - Clinical Impression Clinical Impression: Diarrhea, Concern about STD in male without diagnosis - PA / POWDER OPERATOR / Resident Statement MD/DO has reviewed & agrees with the documentation as recorded. - Scribe Statement The provider has reviewed the documentation as recorded by the Scribjosephine Beltre All medical record entries made by the Rickey were at my direction and personally dictated by me. I have reviewed the chart and agree that the record accurately reflects my personal performance of the history, physical exam, medical decision making, and the department course for this patient. I have also personally directed, reviewed, and agree with the discharge instructions and disposition.
== END 2018-10-14 14:12 | disposition home or self-care (01) ==
LOC: C.ER 10:26
DX: R19.7 Diarrhea, unspecified (principal); Z11.3 Encounter for screening for infections with a predominantly sexual mode of transmission
CPT/HCPCS: 80053; 80324; 80345; 80346; 80349; 80353; 80358; 80361; 81001; 82150; 83690; 83735; 83992; 85025; 87086; 87491; 87591; 87804; 96361; 96372; 96374; 96375; 99285; C9113; J0696; J2405; J7030

== ENCOUNTER 2018-10-26 06:43 | Emergency (ER) | payer MEDICAID ==
[2018-10-26 06:43] VITALS: BMI 20.8
[2018-10-26 06:52] VITALS: RESP 16; TEMP 98.1
[2018-10-26 08:33] LABS: SQUAMOUS EPITHIAL 1 /hpf (0-5); URINE AMORPHOUS SEDIMENT OCC /ul (<OCC); URINE BILIRUBIN NEGATIVE (NEGATIVE); URINE BLOOD NEGATIVE (NEGATIVE); URINE CLARITY Hazy (Clear); URINE COLOR Yellow (YELLOW); URINE GLUCOSE (UA) NORMAL (Normal); URINE LEUKOCYTE ESTERASE NEG Leu/uL (Negative); URINE PROTEIN NEGATIVE (NEGATIVE)
--- NOTE | 2018-10-26 08:37 | RAD ---
Date of service: 10/26/2018 HISTORY: cough, r/o pneumonia COMPARISON: 07/25/2016 TECHNIQUE: Chest PA and lateral FINDINGS: LUNGS: No active pulmonary disease. PLEURA: No significant pleural effusion identified. No pneumothorax apparent. CARDIOVASCULAR: No aortic atherosclerotic calcification present. Normal cardiac size. No pulmonary vascular congestion. OSSEOUS STRUCTURES: No significant abnormalities. VISUALIZED UPPER ABDOMEN: Normal. OTHER FINDINGS: None. IMPRESSION: No active disease.
[2018-10-26] MEDS ORDERED: cefTRIAXone 250 MG, Lidocaine Hydrochloride 1% 1 ML IM ONE (08:44)
[2018-10-26] MEDS ORDERED: cefTRIAXone 250 MG in Lidocaine Hydrochloride 0.9 ML IM ONE (09:00)
--- NOTE | 2018-10-26 09:25 | C.PDOC ---
History Of Present Illness 33 years old male presents to ED requesting STD check. Denies any symptoms. Patient also reports persistent expiratory cough associated with pain with deep inspiration in the back. Patient describes cough is worse at night. Denies fever, nausea, vomiting, rash. Time Seen by Provider: 10/26/18 07:23 Chief Complaint (Nursing): Cough, Cold, Congestion History Per: Patient History/Exam Limitations: no limitations Onset/Duration Of Symptoms: Hrs Current Symptoms Are (Timing): Still Present Recent travel outside of the [place]: No Past Medical History Reviewed: Historical Data, Nursing Documentation, Vital Signs Vital Signs: Last Vital Signs Temp 98.1 F 10/26/18 06:47 Pulse 79 10/26/18 06:47 Resp 16 10/26/18 06:47 BP 130/75 10/26/18 06:47 Pulse Ox 98 10/26/18 06:47 - Medical History PMH: Anxiety, Fractures, Post Traumatic Stress Disorder Denies: Diabetes, Hepatitis, HIV, HTN, Chronic Kidney Disease, Seizures, Sexually Transmitted Disease - [facility] Procedures INDIVID PSYCHOTHERAP NEC (02/02/15) OTHER GROUP THERAPY (02/02/15) Family History: States: Unknown Family Hx - Social History Hx Tobacco Use: Yes Hx Alcohol Use: No Hx Substance Use: Yes (marijuana) - Immunization History Hx Tetanus Toxoid Vaccination: No Hx Influenza Vaccination: No Hx Pneumococcal Vaccination: No Review Of Systems Constitutional: Negative for: Fever, Chills Respiratory: Positive for: Cough Gastrointestinal: Negative for: Nausea, Vomiting, Diarrhea Skin: Negative for: Rash Neurological: Negative for: Weakness, Numbness Physical Exam - Physical Exam Appears: Non-toxic, No Acute Distress Skin: Normal Color, Warm, Dry, No Rash Head: Atraumatic, Normacephalic Eye(s): bilateral: Normal Inspection, PERRL, EOMI Oral Mucosa: Moist Neck: Normal ROM, Supple Chest: Symmetrical, No Tenderness Cardiovascular: Rhythm Regular, No Murmur Respiratory: Normal Breath Sounds, No Rales, No Rhonchi, No Wheezing Gastrointestinal/Abdominal: Bowel Sounds, Soft, No Tenderness Extremity: Normal ROM Extremity: Bilateral: Atraumatic, Normal Color And Temperature, Normal ROM Pulses: Left Radial: Normal, Right Radial: Normal Neurological/Psych: Oriented x3, Normal Speech Gait: Steady ED Course And Treatment O2 Sat by Pulse Oximetry: 98 (RA) Pulse Ox Interpretation: Normal - Other Rad CXR X-Ray: Viewed By Me, Read By Radiologist Interpretation: Date of service: 10/26/2018. HISTORY: cough, r/o pneumonia. COMPARISON: 07/25/2016. TECHNIQUE: Chest PA and lateral. FINDINGS: LUNGS: No active pulmonary disease. PLEURA: No significant pleural effusion identified. No pneumothorax apparent. CARDIOVASCULAR: No aortic atherosclerotic calcification present. Normal cardiac size. No pulmonary vascular congestion. OSSEOUS STRUCTURES: No significant abnormalities. VISUALIZED UPPER ABDOMEN: Normal. OTHER FINDINGS: None. IMPRESSION: No active disease. Medical Decision Making Medical Decision Making: Plan: * Rocephin * Zithromax * Urine culture * Labs * Urinalysis * CXR Disposition - Disposition Referrals: [facility] [Outside] Disposition: HOME/ ROUTINE Disposition Time: 09:25 Condition: STABLE Additional Instructions: Follow up with the medical doctor within 1-2 days without fail. Return if worsened. Prescriptions: Benzonatate 200 mg PO TID PRN #30 capsule PRN Reason: Cough Loratadine [Claritin] 10 mg PO DAILY #10 tab predniSONE [Prednisone] 20 mg PO BID #10 tab Instructions: Urethritis, Upper Respiratory Infection (ED) Forms: [employer] (Icelandic) - Clinical Impression Clinical Impression: STD (male), Influenza-like illness - PA / SWITCH TECHNICIAN / Resident Statement MD/DO has reviewed & agrees with the documentation as recorded. - Scribe Statement The provider has reviewed the documentation as recorded by the Jeffreyibjosephine Lyles All medical record entries made by the Scribe were at my direction and personally dictated by me. I have reviewed the chart and agree that the record accurately reflects my personal performance of the history, physical exam, medical decision making, and the department course for this patient. I have also personally directed, reviewed, and agree with the discharge instructions and disposition.
[2018-10-26 09:35] VITALS: BP 121/85; PULSE 84
[2018-10-26 10:47] VITALS: O2SAT 98
== END 2018-10-26 09:34 | disposition home or self-care (01) ==
LOC: C.ER 06:43
DX: J11.1 Influenza due to unidentified influenza virus with other respiratory manifestations (principal); A64 Unspecified sexually transmitted disease
CPT/HCPCS: 71046; 81001; 87086; 87491; 87591; 96372; 99284; J0696